=== PATIENT | male | born 1995 | race African-American/Black ===

== ENCOUNTER 2019-01-29 20:06 | Emergency (ER) | payer SELFPAY ==
[2019-01-29 20:07] VITALS: BP 142/83; PULSE 88; RESP 20; TEMP 36.8; O2SAT 93
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
[2019-01-29] MEDS: Acetaminophen 500 MG TAB 1000 MG PO (20:24)
[2019-01-29] MEDS: Normal Saline 1,000 ML 1000 ML IV (20:35)
[2019-01-29 21:13] LABS: Abs Immature Grans 0.06 k/cumm (0.0-0.09); Absolute Basophil Count 0.03 k/cumm (0.0-0.2); Absolute Lymphocyte Count 1.91 k/cumm (1.2-3.4); Absolute Monocyte Count 0.89 k/cumm (0.11-0.7); Absolute Neutrophil Count 11.18 k/cumm (1.2-6.7); Basophils % 0.2; Eosinophils % 0.7; HCT 45.6 % (40.0-50.0); Immature Grans % 0.4; Lymphocytes % 13.5; Mean Corp. HGB Concentration 35.1 g/dL (32.0-36.0); Mean Corpuscular Hemoglobin 30.5 pg (27.0-33.0); Mean Platelet Volume 9.1 fL (8.0-11.0); Monocytes % 6.3; Neutrophils % 78.9; Platelet Count 262 x1000/uL (130-400); RBC 5.24 m/cumm (4.50-6.00); RBC Distribution Width 12.8 % (11.8-14.1); White Blood Cell Count 14.17 k/cumm (4.4-10.8)
[2019-01-29 21:33] LABS: ALT 36 U/L (16-63); AST 27 U/L (15-37); Albumin 3.9 g/dL (3.4-5.0); Alkaline Phosphatase 64 U/L (46-116); BUN 15 mg/dL (7-18); Bilirubin, Total 0.5 mg/dL (0.2-1.0); Calcium 8.9 mg/dL (8.5-10.1); Chloride 104 mmol/L (98-107); Glucose 99 mg/dL (74-106); Magnesium 2.2 mg/dL (1.8-2.4); Potassium 3.9 mmol/L (3.5-5.1); Sodium 141 mmol/L (136-145); TSH 3.99 uIU/mL (0.36-3.74); Total Protein 7.9 g/dL (6.4-8.2)
--- NOTE | 2019-01-29 21:36 | DI.RAD_ITS ---
EXAM: XR SHOULDER LT COMPLETE 2+V INDICATION: fall. COMPARISON: No exams were available for comparison TECHNIQUE: 2D digital imaging was performed. FINDINGS: No fracture or dislocation is seen. IMPRESSION: Negative left shoulder.
--- NOTE | 2019-01-29 22:14 | DI.VRAD_ITS ---
PROCEDURE INFORMATION: Exam: XR Left Shoulder Exam date and time: 01/29/2019 9:52 PM Age: 23 years old Clinical history: Injury or trauma; Initial encounter; Blunt trauma (contusions or hematomas; Injury date: 01/29/19; Injury details: Fall onto left shoulder after seizure, pain TECHNIQUE: Imaging protocol: XR Left shoulder. Views: 2 or more views. COMPARISON: No relevant prior studies available. FINDINGS: Bones/joints: No acute fracture. Joint spaces are maintained. Soft tissues: Normal. IMPRESSION: No acute findings. Dictated and Authenticated by: Weston Ch MD. Ordering:BEBETO Black MD
--- NOTE | 2019-01-29 22:36 | NUR.NOTE ---
Nursing Note: Language line utilized for communication with pt.
[2019-01-29 22:50] LABS: FREE T4 0.82 ng/dL (0.76-1.46)
[2019-01-29] MEDS: levETIRAcetam 500 MG TAB PO (23:06)
[2019-01-29] MEDS: Ibuprofen 600 MG TAB PO (23:07)
[2019-01-29] MEDS: levETIRAcetam 500 MG TAB (23:08)
[2019-01-29 23:09] VITALS: BP 124/80; PULSE 80; RESP 20; TEMP 36.8; O2SAT 96
== END 2019-01-29 23:20 | disposition home or self-care (01) ==
PROVIDERS: Emergency Provider Physician Assistant
DX: R56.9 Unspecified convulsions (principal)
CPT/HCPCS: 80053; 93005; 96360; 99284; 73030; 83735; 84439; 84443; 85025; 93010; L3650

== ENCOUNTER 2019-04-22 08:53 | Emergency (ER) | payer MEDICAID, SELFPAY ==
[2019-04-22] VITALS (14 sets, daily range): BP systolic 127; BP diastolic 76; PULSE 57–88; RESP 11–21; TEMP 36.6; O2SAT 96–100
[2019-04-22] MEDS: Normal Saline 1,000 ML 1000 ML IV (09:27)
[2019-04-22 09:30] LABS: Abs Immature Grans 0.03 k/cumm (0.0-0.09); Absolute Basophil Count 0.03 k/cumm (0.0-0.2); Absolute Eosinophil Count 0.19 k/cumm (0.0-0.7); Absolute Lymphocyte Count 2.47 k/cumm (1.2-3.4); Absolute Monocyte Count 0.68 k/cumm (0.11-0.7); Absolute Neutrophil Count 6.17 k/cumm (1.2-6.7); Basophils % 0.3; HCT 47.5 % (40.0-50.0); HGB 16.7 g/dL (13.5-17.5); Immature Grans % 0.3 %; Lymphocytes % 25.8; Mean Corp. HGB Concentration 35.2 g/dL (32.0-36.0); Mean Corpuscular Hemoglobin 30.9 pg (27.0-33.0); Mean Corpuscular Volume 87.8 fL (80-95); Mean Platelet Volume 9.4 fL (8.0-11.0); Monocytes % 7.1; Neutrophils % 64.5; Platelet Count 265 x1000/uL (130-400); RBC 5.41 m/cumm (4.50-6.00); RBC Distribution Width 12.6 % (11.8-14.1); White Blood Cell Count 9.57 k/cumm (4.4-10.8)
[2019-04-22 09:45] LABS: ALT 35 U/L (16-63); AST 21 U/L (15-37); Albumin 3.9 g/dL (3.4-5.0); Alkaline Phosphatase 66 U/L (46-116); Anion Gap 8.4 mmol/L (3-11); BUN 12 mg/dL (7-18); Bilirubin, Total 0.6 mg/dL (0.2-1.0); CO2 27.6 mmol/L (21.0-32.0); CREATININE 0.91 mg/dL (0.70-1.30); Calcium 9.2 mg/dL (8.5-10.1); Chloride 102 mmol/L (98-107); ETHANOL BLOOD < 3.0 mg/dL (<3); Glucose 122 mg/dL (74-106); Potassium 3.8 mmol/L (3.5-5.1); Sodium 138 mmol/L (136-145); Total Protein 7.4 g/dL (6.4-8.2)
--- NOTE | 2019-04-22 10:12 | ED.GENADUL_ITS ---
Discharge Plan Disposition Patient Disposition: HOME Condition: Stable Discharge Details Chief Complaint: Seizure Clinical Impression: Seizure Primary Care Provider: None,None ED Provider: Solo Lala Home Meds and New Rx's Prescriptions: New levetiracetam [Keppra] 500 mg tablet 500 mg PO BID Qty: 20 RF: 0 Continued levetiracetam [Keppra] 500 mg tablet 500 mg PO BID Qty: 20 RF: 0 Discharge Instructions Instructions: Recurrent Seizures in Adults (ED) Additional Instructions: Keppra as directed. Please follow the instructions given to you by the care management team, go to [facility] tomorrow to help with community resources including filling out your proper paperwork for healthcare, to help you with housing, and also to help you with prescription medications. In the meantime please watch for new or worsening symptoms and return to the ER for any concerns. I will give you the name and number of our local neurologist as well. Contact their office tomorrow for prompt outpatient reevaluation Referrals: Leti Rodriguez MD [ [facility] STAFF PHYSICIAN] - Medical Decision Making 24-year-old gentleman with longstanding seizure disorder since the age of 11. He presents today via EMS after a 2-minute seizure, apparently postictal on scene, neurologically intact now. Had a very similar visit in January of last year. I had a long talk with both patient and significant other. There seems to be multiple social barriers that are not allowing him to seek outpatient medical care. Given his longstanding history, no fall today, I do not believe a head CT is indicated but will obtain routine laboratory values and EKG. In the meantime I will get care management involved in the case to see if they can help with his prescriptions, paperwork for insurance Work-up in the ER unremarkable for obvious emergent process. Patient is awake, alert, neurologically intact, has no additional questions or concerns. It appears as though he is able to eat without difficulty, significant other did order take out while they were here in the ER. Care management came to evaluate the patient, please see their note. Patient and family will go to [facility] tomorrow to help expedite all of their outpatient needs. Patient was given 1 g IV Keppra here and I will set him up with 8 tablets of 500 mg twice daily for the next 4 days, and give a prescription for 20 tablets as well. Patient and family have no additional questions or concerns and are comfortable discharge. Upon discharge patient is neurologically intact. We will arrange a ride home for the patient as well as they do not have any transportation and came in via ambulance. Medical Records Medical records reviewed: Yes I reviewed the patient's medical records. Lab Data Lab results reviewed: Yes I reviewed the patient's lab results. Lab results narrative: Laboratory Tests Range/Units 04/22/19 04/22/19 09:20 09:20 WBC (4.4-10.8) k/cumm 9.57 RBC (4.50-6.00) m/cumm 5.41 Hgb (13.5-17.5) g/dL 16.7 Hct (40.0-50.0) % 47.5 MCV (80-95) fL 87.8 MCH (27.0-33.0) pg 30.9 MCHC (32.0-36.0) g/dL 35.2 RDW (11.8-14.1) % 12.6 Plt Count (130-400) x1000/uL 265 MPV (8.0-11.0) fL 9.4 Immature Gran % % 0.3 Neutrophils % 64.5 Lymphocytes % 25.8 Monocytes % 7.1 Eosinophils % 2.0 Basophils % 0.3 Absolute Neutrophils (1.2-6.7) k/cumm 6.17 Absolute Lymphocytes (1.2-3.4) k/cumm 2.47 Absolute Monocytes (0.11-0.7) k/cumm 0.68 Absolute Eosinophils (0.0-0.7) k/cumm 0.19 Absolute Basophils (0.0-0.2) k/cumm 0.03 Sodium (136-145) mmol/L 138 Potassium (3.5-5.1) mmol/L 3.8 Chloride (98-107) mmol/L 102 Carbon Dioxide (21.0-32.0) mmol/L 27.6 Anion Gap (3-11) mmol/L 8.4 BUN (7-18) mg/dL 12 Creatinine (0.70-1.30) mg/dL 0.91 Estimated GFR/1.73 m2 (mL/min/1.73m2) >= 60.00 Glucose (74-106) mg/dL 122 H Calcium (8.5-10.1) mg/dL 9.2 Total Bilirubin (0.2-1.0) mg/dL 0.6 AST (15-37) U/L 21 ALT (16-63) U/L 35 Alkaline Phosphatase (46-116) U/L 66 Total Protein (6.4-8.2) g/dL 7.4 Albumin (3.4-5.0) g/dL 3.9 Ethyl Alcohol (<3) mg/dL < 3.0 ECG Data Attestation: I personally reviewed and interpreted this ECG (s) as follows: Interpretation: EKG performed at 904 reveals sinus rhythm, ventricular rate of 93. No acute ST elevation or depression segments. HPI General Mode of arrival: EMS . Date/Time Provider Initiated Documentation: 04/22/19 09:00 . Limitations to Documentation: no limitations (upper tier used for evaluation) . Information obtained by: patient and family . HPI Narrative: This is a 24-year- old gentleman who presents to the ER via EMS with his significant other. They report that he did have a few drinks last night but does not typically drink. Denies any recent illness or trauma. This morning around 9:00 had a 2-minute body wide convulsing seizure per her significant other that occurred on their bed, there was no fall or subsequent injury. They deny any other past medical history. Patient reports that he does not have insurance, is unable to fill his prescription for Keppra as directed, and unable to follow-up with a primary care provider or neurology team as an outpatient. Last seizure occurred in January, he was evaluated at that time. It appears as though he had laboratory values drawn, 4-day take-home pack of Keppra given, and set up with care management. They report that they have the packets of paper at home but given the language barrier do not know how to fill them out properly. Patient denies headache, visual changes, chest pain, shortness of breath, nausea, vomiting, numbness, tingling, weakness, incontinence. Does report that his upper back and bilateral shoulders feel tight and that this is very common after having a seizure. He does report having felt his tongue but was not incontinent of urine. Related Data Home Medications Medication Instructions Recorded Confirmed levetiracetam [Keppra] 500 mg PO BID #20 tab 01/29/19 04/22/19 levetiracetam [Keppra] 500 mg PO BID #20 tab 04/22/19 Previous Rx's Medication Instructions Recorded levetiracetam [Keppra] 500 mg PO BID #20 tab 01/29/19 levetiracetam [Keppra] 500 mg PO BID #20 tab 04/22/19 Allergies Allergy/AdvReac Type Severity Reaction Status Date / Time No Known Allergies Allergy Unverified 04/22/19 09:10 General Stated Complaint: Seizure EMILIE: 3 Review of Systems Constitutional Constitutional: Denies chills, Denies fatigue, Denies fever(s), Denies headache(s) and Denies weakness Eyes Eyes: Denies change in vision ENT Ears, Nose, Mouth, and Throat: Denies headache(s) Cardiovascular Cardiovascular: Denies chest pain and Denies dyspnea Respiratory Respiratory: Denies cough and Denies dyspnea Gastrointestinal Gastrointestinal: Denies abdominal pain, Denies nausea and Denies vomiting Genitourinary Genitourinary: Denies dysuria Musculoskeletal Musculoskeletal: Reports back pain (As above in HPI), Denies numbness and Denies tingling Integumentary/Breasts Skin/Breast: Denies rash Neurologic Neurologic: Denies headache(s), Denies numbness, Denies tingling and Denies weakness Endocrine Endocrine: Denies fatigue [facility] Medical History Seizure (Acute) Social History Smoking/Tobacco Use Status: Current every day Tobacco Type: cigarettes Alcohol Intake: never Drug use: Daily Substance use type: marijuana Do you feel safe at home: Yes Do you feel safe in your relationship?: Yes Exam Const General: cooperative, healthy appearing, comfortable and no acute distress Orientation: alert and awake [facility] Head: normal to inspection, no palpable skull fracture, normocephalic and atraumatic Ears: external ears normal, TM's normal bilaterally and TM normal on the left Mouth: moist mucous membranes and tongue abnormal other (Abrasion superior aspect, no laceration) Throat: posterior oropharynx normal Eyes General: appearance normal, both eyes and all related structures Alignment and Position: alignment normal Periorbital: periorbital findings normal Eyelids: eyelids normal Conjunctivae: conjunctivae normal Sclera: sclerae normal Cornea: corneas normal Pupils: PERRL EOM: EOM intact bilaterally Direct ophthalmoscopy: normal light reflex Neck Neck: normal visual inspection, full ROM, no lymphadenopathy, no meningeal si gns, trachea midline and supple Resp Effort & Inspection: normal respiratory effort and able to speak in complete sentences Auscultation: clear to auscultation bilaterally Cardio Rate: regular rate Rhythm: regular rhythm GI Palpation: soft, no guarding, not rigid and nontender Back/Spine/Pelvis Back: No back tenderness Skin General skin exam: no rashes or lesions noted Neuro General: alert, awake, oriented x3, moves all extremities and no focal motor deficits Cranial Nerves: CN's II-XI intact bilaterally Cognition: normal cognition (Of note, Pt is unable to give me information re garding what happened today) Speech: speech normal Gait: normal gait Motor: muscle tone normal throughout and strength 5/5 throughout Sensory Exam: no sensory deficits noted Extrem General: normal to inspection and full ROM Psych Appearance: grossly normal Mental Status: mental status grossly normal Course Vital Signs Vital signs: Vital Signs Temperature 36.6 C 04/22/19 08:54 Pulse 88 04/22/19 08:54 Respiratory Rate 20 04/22/19 08:54 Blood Pressure 127/76 04/22/19 08:54 Pulse Oximetry 98 04/22/19 08:54 Temperature 36.6 C 04/22/19 08:54 Temperature Source Temporal Artery Scan 04/22/19 08:54 Pulse 88 04/22/19 08:54 Respiratory Rate 20 04/22/19 08:54 Respiratory Effort Non-Labored 04/22/19 09:08 Respiratory Depth Normal 04/22/19 09:08 Respiratory Pattern Normal 04/22/19 09:08 Blood Pressure 127/76 04/22/19 08:54 Blood Pressure Position Sitting 04/22/19 08:54 Pulse Oximetry 98 04/22/19 08:54 Oxygen Delivery Method Room Air 04/22/19 08:54 Oxygen Flow Rate 0 04/22/19 08:54 Pain Level 9 04/22/19 08:54 Lab/Test Results Lab/Test Results: Laboratory Tests Range/Units 04/22/19 04/22/19 09:20 09:20 WBC (4.4-10.8) k/cumm 9.57 RBC (4.50-6.00) m/cumm 5.41 Hgb (13.5-17.5) g/dL 16.7 Hct (40.0-50.0) % 47.5 MCV (80-95) fL 87.8 MCH (27.0-33.0) pg 30.9 MCHC (32.0-36.0) g/dL 35.2 RDW (11.8-14.1) % 12.6 Plt Count (130-400) x1000/uL 265 MPV (8.0-11.0) fL 9.4 Immature Gran % % 0.3 Neutrophils % 64.5 Lymphocytes % 25.8 Monocytes % 7.1 Eosinophils % 2.0 Basophils % 0.3 Absolute Neutrophils (1.2-6.7) k/cumm 6.17 Absolute Lymphocytes (1.2-3.4) k/cumm 2.47 Absolute Monocytes (0.11-0.7) k/cumm 0.68 Absolute Eosinophils (0.0-0.7) k/cumm 0.19 Absolute Basophils (0.0-0.2) k/cumm 0.03 Sodium (136-145) mmol/L 138 Potassium (3.5-5.1) mmol/L 3.8 Chloride (98-107) mmol/L 102 Carbon Dioxide (21.0-32.0) mmol/L 27.6 Anion Gap (3-11) mmol/L 8.4 BUN (7-18) mg/dL 12 Creatinine (0.70-1.30) mg/dL 0.91 Estimated GFR/1.73 m2 (mL/min/1.73m2) >= 60.00 Glucose (74-106) mg/dL 122 H Calcium (8.5-10.1) mg/dL 9.2 Total Bilirubin (0.2-1.0) mg/dL 0.6 AST (15-37) U/L 21 ALT (16-63) U/L 35 Alkaline Phosphatase (46-116) U/L 66 Total Protein (6.4-8.2) g/dL 7.4 Albumin (3.4-5.0) g/dL 3.9 Ethyl Alcohol (<3) mg/dL < 3.0
[2019-04-22] MEDS: levETIRAcetam 1,000 MG in Normal Saline 100 ML 400 MG IVPB (10:30)
[2019-04-22] MEDS: levETIRAcetam 250 MG TAB 500 MG PO (12:25)
--- NOTE | 2019-04-23 15:48 | PDOC.ERCMPRO ---
- If Service Date Differs Date of service: 04/23/19 Time of Service: 15:48
== END 2019-04-22 12:14 | disposition home or self-care (01) ==
PROVIDERS: Emergency Provider Physician Assistant
DX: G40.89 Other seizures (principal)
CPT/HCPCS: 80053; 80307; 96361; 96365; 99284; 80320; 81003; 85025; J1953

== ENCOUNTER 2019-06-10 09:35 | Emergency (ER) | payer MEDICAID, SELFPAY ==
[2019-06-10 09:35] VITALS: BP 134/83; PULSE 74; RESP 16; TEMP 36.3; O2SAT 98
--- NOTE | 2019-06-10 09:35 | ED.GENADUL_ITS ---
Discharge Plan Disposition Patient Disposition: HOME Condition: Good Discharge Details Chief Complaint: Seizure Clinical Impression: Seizure disorder, Noncompliance with medication regimen Primary Care Provider: None,None ED Provider: Dona Amato Home Meds and New Rx's Prescriptions: Continued levetiracetam [Keppra] 500 mg tablet 500 mg PO BID Qty: 60 RF: 0 Discontinued levetiracetam [Keppra] 500 mg tablet 500 mg PO BID Qty: 60 RF: 0 Discharge Instructions Instructions: Recurrent Seizures in Adults (ED) Additional Instructions: Take the Keppra as directed. You were also given a prescription for Keflex which you can take to [facility] and they can provide a coupon to help with cost. You do not need insurance to fill this prescription. You need to be taking this medication everyday. You will receive a call from care management tomorrow regarding help with insurance and medications and for a follow up appointment with neurology. Return to the emergency department if you develop any worsening or concerning symptoms. Referrals: Leti Rodriguez MD [ [facility] STAFF PHYSICIAN] - Discharge Data Discharge Date/Time-TO BE ENTERED AT DEPARTURE: 06/10/19 11:30 Discharge Physician: Dona Amato Medical Decision Making 0930 -- 24-year-old male with a history of seizures presents for seizure at home this morning. He was seen here last month for same complaint and given Keppra load and doses for home and prescription which she states he did not fill due to lack of insurance. Patient arrives to the ED awake and alert and hemodynamically stable. No evidence of trauma on exam. He has pain to left arm with range of motion which is likely due to muscle contraction with seizures as there is no evidence of trauma or complaint of arm pain prior to seizure. We will check screening labs, give Keppra load and Toradol. Patient has no noted neurologic deficit or report of head trauma and appears consistent likely with seizure occurring due to medication noncompliance so do not see an indication for imaging at this time. Case discussed with care management who will call patient at home tomorrow to assist with his insurance and medication and assist with appointment for follow- up with neurology. 1100 -- Labs reviewed and unremarkable. Patient reassessed and he has no acute complaints. Left arm improved. Patient was given 7 days of Keppra to go as well as prescription. He was provided with coupons and information for obtaining a month prescription at [facility] for $9 and at [facility] for $16. He was advised on the importance of taking this medicine every day to prevent seizures and repeated neurologic insult. Advised to return here with any concerns. Medical Records Medical records reviewed: Yes I reviewed the patient's medical records. Lab Data Lab results reviewed: Yes I reviewed the patient's lab results. Labs: Laboratory Tests Range/Units 06/10/19 06/10/19 09:45 09:45 WBC (4.4-10.8) k/cumm 9.94 RBC (4.50-6.00) m/cumm 5.30 Hgb (13.5-17.5) g/dL 16.5 Hct (40.0-50.0) % 46.7 MCV (80-95) fL 88.1 MCH (27.0-33.0) pg 31.1 MCHC (32.0-36.0) g/dL 35.3 RDW (11.8-14.1) % 12.9 Plt Count (130-400) x1000/uL 254 MPV (8.0-11.0) fL 9.7 Immature Gran % % 0.3 Neutrophils % 59.6 Lymphocytes % 31.1 Monocytes % 6.8 Eosinophils % 2.0 Basophils % 0.2 Absolute Neutrophils (1.2-6.7) k/cumm 5.92 Absolute Lymphocytes (1.2-3.4) k/cumm 3.09 Absolute Monocytes (0.11-0.7) k/cumm 0.68 Absolute Eosinophils (0.0-0.7) k/cumm 0.20 Absolute Basophils (0.0-0.2) k/cumm 0.02 Sodium (136-145) mmol/L 142 Potassium (3.5-5.1) mmol/L 3.9 Chloride (98-107) mmol/L 104 Carbon Dioxide (21.0-32.0) mmol/L 23.9 Anion Gap (3-11) mmol/L 14.1 H BUN (7-18) mg/dL 12 Creatinine (0.70-1.30) mg/dL 1.05 Estimated GFR/1.73 m2 (mL/min/1.73m2) >= 60.00 Glucose (74-106) mg/dL 139 H Calcium (8.5-10.1) mg/dL 8.8 Total Bilirubin (0.2-1.0) mg/dL 0.3 AST (15-37) U/L 22 ALT (16-63) U/L 32 Alkaline Phosphatase (46-116) U/L 65 Total Protein (6.4-8.2) g/dL 7.4 Albumin (3.4-5.0) g/dL 3.9 HPI General Mode of arrival: EMS . Date/Time Provider Initiated Documentation: 06/10/19 09:51 . Limitations to Documentation: no limitations . Information obtained by: patient . HPI Narrative: Patient is a 24-year-old male with a history of seizures since age 11 who presents for evaluation after seizure at home this morning. Patient did not recall the episode. Patient is Kyrgyz-speaking only but history provided by girlfriend as well as language line. Girlfriend states she was in the residence at the time when she heard yelling and ran to the bedroom and states patient was laying in the bed and what appeared to be a tonic-clonic seizure with arms jerking and weeding [id number]. She states this lasted approximately 3 minutes. She states patient appears somewhat tired and dazed afterwards but now appears back to baseline. Patient complains of left arm and left upper back pain since then. Denies any injury. Denies any recent illness including fever, vomiting, diarrhea, cough, shortness of breath. Of note, patient was seen here 1 month ago for the same complaint and was given Keppra load as well as tabs to go and prescription. Patient states he does not have insurance and did not fill the prescription. Related Data Home Medications Medication Instructions Recorded Confirmed levetiracetam [Keppra] 500 mg PO BID #60 tab 06/10/19 Previous Rx's Medication Instructions Recorded levetiracetam [Keppra] 500 mg PO BID #60 tab 06/10/19 Allergies Allergy/AdvReac Type Severity Reaction Status Date / Time No Known Allergies Allergy Unverified 06/10/19 09:40 General EMILIE: 3 Review of Systems All systems reviewed & are unremarkable except as noted in HPI and below Constitutional Constitutional: Reports as per HPI, Denies chills and Denies fever(s) Eyes Eyes: Denies blurry vision ENT Ears, Nose, Mouth, and Throat: Denies dizziness, Denies sore throat and Denies throat swelling Cardiovascular Cardiovascular: Denies chest pain and Denies dyspnea Respiratory Respiratory: Denies cough and Denies dyspnea Gastrointestinal Gastrointestinal: Denies abdominal pain, Denies diarrhea and Denies vomiting Genitourinary Genitourinary: Denies hematuria and Denies dysuria Musculoskeletal Musculoskeletal: Denies back pain and Denies numbness Integumentary/Breasts Skin/Breast: Denies lesions and Denies rash Neurologic Neurologic: Denies dizziness, Denies localized weakness, Denies numbness and Reports seizure-like activity Allergic/Immunologic Allergic/Immunologic: Denies throat swelling [facility] Medical History (Updated 06/10/19 @ 11:14 by Dona Amato DO) Seizure (Acute) Surgical History (Updated 06/10/19 @ 09:55 by Dona Amato DO) No significant past surgical history (Acute) Social History Smoking/Tobacco Use Status: Current every day Tobacco Type: cigarettes Alcohol Intake: never Drug use: Daily Substance use type: marijuana Do you feel safe at home: Yes Do you feel safe in your relationship?: Yes Exam Const General: cooperative, healthy appearing and no acute distress Nutritional Appearance: obese morbidly obese Orientation: alert, awake and oriented x3 HENMT Head: normal to inspection Ears: hearing grossly normal bilaterally, external ears normal and TM's normal bilaterally General nose exam: external nose normal Face and sinus: normal facial exam Mouth: oral mucosae normal Teeth and gingiva: dentition normal Throat: posterior oropharynx normal Eyes General: appearance normal, both eyes and all related structures Eyelids: eyelids normal Pupils: PERRL EOM: EOM intact bilaterally Neck Neck: normal visual inspection Lymphatic: no lymphadenopathy noted Chest Chest: normal inspection of the chest Resp Effort & Inspection: normal respiratory effort and able to speak in complete sentences Auscultation: clear to auscultation bilaterally Cardio Rate: regular rate Rhythm: regular rhythm GI Inspection: normal to inspection Palpation: soft, not firm, no guarding, no hepatosplenomegaly, no masses and nontender Auscultation: normal bowel sounds Back/Spine/Pelvis Back: no CVA tenderness Skin General skin exam: no rashes or lesions noted Neuro General: patient alert, patient awake and patient oriented x3 Cranial Nerves: CN's II-XI intact bilaterally Cognition: normal cognition Speech: speech normal Gait: normal gait Motor: muscle tone normal throughout and strength 5/5 throughout Sensory Exam: no sensory deficits noted Extrem General: normal to inspection, full ROM, capillary refill normal, no cyanosis and no edema Right upper extremity: shoulder/upper arm Details: abnormal ROM Details: pain with active ROM Details: in ADduction and in ABduction Other: b/l distal pulses intact. Psych Appearance: grossly normal Mental Status: mental status grossly normal Speech and Movement: speech and movement normal Affect: normal affect Thought Process: normal
[2019-06-10] MEDS: Normal Saline 1,000 ML 1000 ML IV (09:58)
[2019-06-10 10:00] LABS: Abs Immature Grans 0.03 k/cumm (0.0-0.09); Absolute Basophil Count 0.02 k/cumm (0.0-0.2); Absolute Lymphocyte Count 3.09 k/cumm (1.2-3.4); Absolute Monocyte Count 0.68 k/cumm (0.11-0.7); Absolute Neutrophil Count 5.92 k/cumm (1.2-6.7); Basophils % 0.2; HCT 46.7 % (40.0-50.0); HGB 16.5 g/dL (13.5-17.5); Immature Grans % 0.3 %; Lymphocytes % 31.1; Mean Corp. HGB Concentration 35.3 g/dL (32.0-36.0); Mean Corpuscular Hemoglobin 31.1 pg (27.0-33.0); Mean Corpuscular Volume 88.1 fL (80-95); Mean Platelet Volume 9.7 fL (8.0-11.0); Monocytes % 6.8; Neutrophils % 59.6; Platelet Count 254 x1000/uL (130-400); RBC Distribution Width 12.9 % (11.8-14.1); White Blood Cell Count 9.94 k/cumm (4.4-10.8)
[2019-06-10] MEDS: levETIRAcetam 1,000 MG in Normal Saline 100 ML 400 MG IVPB (10:04)
[2019-06-10] MEDS: Ketorolac 30 MG/ML VIAL IVP (10:05)
[2019-06-10 10:22] LABS: ALT 32 U/L (16-63); AST 22 U/L (15-37); Albumin 3.9 g/dL (3.4-5.0); Alkaline Phosphatase 65 U/L (46-116); Anion Gap 14.1 mmol/L (3-11); BUN 12 mg/dL (7-18); Bilirubin, Total 0.3 mg/dL (0.2-1.0); CO2 23.9 mmol/L (21.0-32.0); CREATININE 1.05 mg/dL (0.70-1.30); Calcium 8.8 mg/dL (8.5-10.1); Chloride 104 mmol/L (98-107); Glucose 139 mg/dL (74-106); Potassium 3.9 mmol/L (3.5-5.1); Sodium 142 mmol/L (136-145); Total Protein 7.4 g/dL (6.4-8.2)
--- NOTE | 2019-06-10 11:15 | NUR.NOTE ---
follow up with care managment for PCP. and help with insurance. Also follow up with nurology for seisucres. 06/10/2019 Nursing Note:
--- NOTE | 2019-06-13 18:34 | CMACTNOTE_ITS ---
- If Service Date Differs Date of service: 06/13/19 Time of Service: 18:34 Care Management Activity Note KENNETH speaks with patient's friend, Trevor Hernandez, on the telephone. She advises Sixto is doing well and has not yet picked up his prescriptions, but has a plan to go to the pharmacy to get the scripts filled in the next day or two. KENNETH provides her with the phone number for [facility], as she is agreeable to assisting Sixto in contacting them to begin the process of apply ing for health insurance.
== END 2019-06-10 11:30 | disposition home or self-care (01) ==
PROVIDERS: Emergency Provider Physician Assistant
DX: G40.909 Epilepsy, unspecified, not intractable, without status epilepticus (principal); Z91.14 Patient's other noncompliance with medication regimen
CPT/HCPCS: 80053; 96361; 96365; 96375; 99284; 85025; J1885; J1953

== ENCOUNTER 2019-09-02 11:04 | Emergency (ER) | payer MEDICAID, SELFPAY ==
[2019-09-02] VITALS (32 sets, daily range): BP systolic 121–146; BP diastolic 70–103; PULSE 52–96; RESP 13–27; TEMP 36.7; O2SAT 95–99
--- NOTE | 2019-09-02 11:09 | ED.GENADUL_ITS ---
Discharge Plan Disposition Patient Disposition: HOME Condition: Stable Discharge Details Chief Complaint: Seizure Clinical Impression: Seizure, Noncompliance with medication regimen Primary Care Provider: None,None ED Provider: Dona Amato Home Meds and New Rx's Prescriptions: New levetiracetam [Keppra] 500 mg tablet 500 mg PO BID Qty: 120 RF: 0 Continued levetiracetam [Keppra] 500 mg tablet 500 mg PO BID Qty: 60 RF: 0 Discharge Instructions Instructions: Recurrent Seizures in Adults (ED) Additional Instructions: Take the Keppra as directed. It is important not to miss any doses of this medication as this prevents seizures. Repeated seizures can cause damage to your brain. Establish care with a new primary care doctor in [place] when you move there in the next 2 weeks. Return to the emergency department with any worsening or new concerning symptoms. Discharge Data Discharge Date/Time-TO BE ENTERED AT DEPARTURE: 09/02/19 14:38 Discharge Physician: Dona Amato Medical Decision Making 1110 -- 24-year-old male with a known seizure disorder presents for seizure at home today. He has a history of noncompliance with his medications. Last dose of Keppra this morning, but last dose before that weeks ago. Offered language line but patient declined stating he would prefer to translate through his girlfriend who was present and filipino speaking. Patient has been here multiple times in the recent past with seizure in setting of medication noncompliance and he has been given resources and referred for follow-up through care management. BP mildly hypertensive. He is complaining of pain in his back and upper arms which is usual presentation of seizure. He is awake and oriented x3. He has no focal deficits and able to answer all questions. No evidence of trauma, rash or cellulitis. 1330 -- Screening labs obtained and unremarkable. Patient was given 1 g of Keppra p.o. here. He is awake and alert, no focal deficits and is requesting to go home. Patient is moving to [place] in the next 2 weeks. A prescription for Keppra for 2 months given. It was discussed at length the importance of patient taking his seizure medications to prevent repeated neurologic insult. He is advised to follow-up with a primary care doctor and neurologist in [place] for reevaluation. Usual and customary return precautions given prior to discharge. Medical Records Medical records reviewed: Yes I reviewed the patient's medical records. Lab Data Lab results reviewed: Yes I reviewed the patient's lab results. Labs: Laboratory Tests Range/Units 09/02/19 09/02/19 11:18 11:18 WBC (4.4-10.8) k/cumm 10.18 RBC (4.50-6.00) m/cumm 5.35 Hgb (13.5-17.5) g/dL 16.3 Hct (40.0-50.0) % 47.0 MCV (80-95) fL 87.9 MCH (27.0-33.0) pg 30.5 MCHC (32.0-36.0) g/dL 34.7 RDW (11.8-14.1) % 12.9 Plt Count (130-400) x1000/uL 261 MPV (8.0-11.0) fL 9.3 Immature Gran % % 0.3 Neutrophils % 62.9 Lymphocytes % 28.9 Monocytes % 5.8 Eosinophils % 1.9 Basophils % 0.2 Absolute Neutrophils (1.2-6.7) k/cumm 6.41 Absolute Lymphocytes (1.2-3.4) k/cumm 2.94 Absolute Monocytes (0.11-0.7) k/cumm 0.59 Absolute Eosinophils (0.0-0.7) k/cumm 0.19 Absolute Basophils (0.0-0.2) k/cumm 0.02 Sodium (136-145) mmol/L 141 Potassium (3.5-5.1) mmol/L 3.5 Chloride (98-107) mmol/L 103 Carbon Dioxide (21.0-32.0) mmol/L 21.3 Anion Gap (3-11) mmol/L 16.7 H BUN (7-18) mg/dL 11 Creatinine (0.70-1.30) mg/dL 1.17 Estimated GFR/1.73 m2 (mL/min/1.73m2) >= 60.00 Glucose (74-106) mg/dL 151 H Calcium (8.5-10.1) mg/dL 9.0 Total Bilirubin (0.2-1.0) mg/dL 0.6 AST (15-37) U/L 31 ALT (16-63) U/L 40 Alkaline Phosphatase (46-116) U/L 63 Total Protein (6.4-8.2) g/dL 7.6 Albumin (3.4-5.0) g/dL 4.1 HPI General Mode of arrival: ambulatory . Date/Time Provider Initiated Documentation: 09/02/19 11:24 . Limitations to Documentation: no limitations . Information obtained by: patient . HPI Narrative: Patient is a 24-year-old male with a known seizure disorder who presents to the emergency department status post seizure. Girlfriend states that patient was laying in bed when he told her he started feeling funny and was concerned he was about to have a seizure. She states she kept him in the bed and he had a seizure which lasted approximately 3 minutes. She states he had full body jerking consistent with his usual seizures. She states his last seizure was 2 months ago when he was seen here. Patient has been seen in the ER multiple times for seizures and has been noncompliant with his medications. Patient states he mainly does not take his Keppra because he forgets . Patient is [place]-speaking only and discussed that we can obtain the language line but he states he would prefer to provide history through his girlfriend who is [place] and [place]-speaking. Related Data Home Medications Medication Instructions Recorded Confirmed levetiracetam [Keppra] 500 mg PO BID #120 tab 09/02/19 levetiracetam [Keppra] 500 mg PO BID #60 tab 09/02/19 Previous Rx's Medication Instructions Recorded levetiracetam [Keppra] 500 mg PO BID #120 tab 09/02/19 levetiracetam [Keppra] 500 mg PO BID #60 tab 09/02/19 Allergies Allergy/AdvReac Type Severity Reaction Status Date / Time No Known Allergies Allergy Unverified 09/02/19 11:33 General Stated Complaint: Seizure EMILIE: 3 Review of Systems All systems reviewed & are unremarkable except as noted in HPI and below Constitutional Constitutional: Reports as per HPI, Denies chills and Denies fever(s) Eyes Eyes: Denies blurry vision ENT Ears, Nose, Mouth, and Throat: Denies dizziness, Denies sore throat and Denies throat swelling Cardiovascular Cardiovascular: Denies chest pain and Denies dyspnea Respiratory Respiratory: Denies cough and Denies dyspnea Gastrointestinal Gastrointestinal: Denies abdominal pain, Denies diarrhea and Denies vomiting Genitourinary Genitourinary: Denies hematuria and Denies dysuria Musculoskeletal Musculoskeletal: Denies back pain and Denies numbness Integumentary/Breasts Skin/Breast: Denies lesions and Denies rash Neurologic Neurologic: Denies dizziness, Denies localized weakness, Denies numbness and Reports seizure-like activity Allergic/Immunologic Allergic/Immunologic: Denies throat swelling [facility] Medical History (Updated 09/02/19 @ 13:51 by Dona Amato DO) Seizure (Acute) Surgical History (Updated 06/10/19 @ 09:55 by Dona Amato DO) No significant past surgical history (Acute) Social History Smoking/Tobacco Use Status: Current every day Tobacco Type: cigarettes Alcohol Intake: current Alcohol Intake frequency: a few times a week Drug use: Daily Substance use type: marijuana Do you feel safe at home: Yes Do you feel safe in your relationship?: Yes Exam Const General: cooperative and other (tearful, c/o pain in back and both shoulders, typical of usual seizure) Nutritional Appearance: obese morbidly obese Orientation: alert, awake and oriented x3 HENMT Head: normal to inspection Face and sinus: normal facial exam Eyes General: appearance normal, both eyes and all related structures Pupils: PERRL EOM: EOM intact bilaterally Neck Neck: normal visual inspection and No submandibular swelling Lymphatic: no lymphadenopathy noted Chest Chest: normal inspection of the chest and no tenderness Resp Effort & Inspection: normal respiratory effort and able to speak in complete sentences Auscultation: clear to auscultation bilaterally Cardio Rate: regular rate Rhythm: regular rhythm GI Inspection: normal to inspection Palpation: soft, not firm, not rigid and nontender Auscultation: normal bowel sounds Back/Spine/Pelvis Cervical Spine: No cervical muscular tenderness and No cervical spinal tenderness Thoracic/Lumbar Spine: thoracic and lumbar spine normal to inspection, paraspinal tenderness (Bilateral upper thoracic) and No thoracic spinal tenderness Pelvis: no pain with anterior-posterior compression Skin General skin exam: no rashes or lesions noted Neuro General: patient alert, patient awake and patient oriented x3 Cranial Nerves: CN's II-XI intact bilaterally Cognition: normal cognition Speech: speech normal Motor: muscle tone normal throughout and strength 5/5 throughout Sensory Exam: no sensory deficits noted Extrem General: normal to inspection, full ROM, capillary refill normal, no calf tenderness bilaterally and no edema Psych Appearance: grossly normal Mental Status: mental status grossly normal Speech and Movement: speech and movement normal Affect: normal affect Course Vital Signs Vital signs: Vital Signs Temperature 98.1 F 09/02/19 11:05 Pulse 96 H 09/02/19 11:05 Respiratory Rate 20 09/02/19 11:05 Blood Pressure 146/103 H 09/02/19 11:05 Pulse Oximetry 95 09/02/19 11:05 Temperature 98.1 F 09/02/19 11:05 Temperature Source Skin 09/02/19 11:05 Pulse 96 H 09/02/19 11:05 Respiratory Rate 20 09/02/19 11:05 Blood Pressure 146/103 H 09/02/19 11:05 Blood Pressure Position Sitting 09/02/19 11:05 Pulse Oximetry 95 09/02/19 11:05 Oxygen Delivery Method Room Air 09/02/19 11:05 Oxygen Flow Rate 0 09/02/19 11:05
[2019-09-02] MEDS: Normal Saline 1,000 ML 1000 ML IV (11:15)
[2019-09-02 11:26] LABS: Abs Immature Grans 0.03 k/cumm (0.0-0.09); Absolute Basophil Count 0.02 k/cumm (0.0-0.2); Absolute Eosinophil Count 0.19 k/cumm (0.0-0.7); Absolute Lymphocyte Count 2.94 k/cumm (1.2-3.4); Absolute Monocyte Count 0.59 k/cumm (0.11-0.7); Absolute Neutrophil Count 6.41 k/cumm (1.2-6.7); Basophils % 0.2; Eosinophils % 1.9; HGB 16.3 g/dL (13.5-17.5); Immature Grans % 0.3 %; Lymphocytes % 28.9; Mean Corp. HGB Concentration 34.7 g/dL (32.0-36.0); Mean Corpuscular Hemoglobin 30.5 pg (27.0-33.0); Mean Corpuscular Volume 87.9 fL (80-95); Mean Platelet Volume 9.3 fL (8.0-11.0); Monocytes % 5.8; Neutrophils % 62.9; Platelet Count 261 x1000/uL (130-400); RBC 5.35 m/cumm (4.50-6.00); RBC Distribution Width 12.9 % (11.8-14.1); White Blood Cell Count 10.18 k/cumm (4.4-10.8)
[2019-09-02] MEDS: Ketorolac 30 MG/ML VIAL IVP (11:29)
[2019-09-02] MEDS: ACETAMINOPHEN 1,000 MG/100 ML BTL 400 MG IVPB (11:30)
[2019-09-02 11:43] LABS: ALT 40 U/L (16-63); AST 31 U/L (15-37); Albumin 4.1 g/dL (3.4-5.0); Alkaline Phosphatase 63 U/L (46-116); Anion Gap 16.7 mmol/L (3-11); BUN 11 mg/dL (7-18); Bilirubin, Total 0.6 mg/dL (0.2-1.0); CO2 21.3 mmol/L (21.0-32.0); CREATININE 1.17 mg/dL (0.70-1.30); Chloride 103 mmol/L (98-107); Glucose 151 mg/dL (74-106); Potassium 3.5 mmol/L (3.5-5.1); Sodium 141 mmol/L (136-145); Total Protein 7.6 g/dL (6.4-8.2)
[2019-09-02] MEDS: levETIRAcetam 500 MG TAB 1000 MG PO (12:40)
--- NOTE | 2019-09-02 14:34 | NUR.NOTE ---
Nursing Note: Called [facility] and pt is not eligible through Medicaid for transport. Permission from Zeynep Burrell, Care Management for [facility] to pay for ride back to residence. Diane Gil.
== END 2019-09-02 14:38 | disposition home or self-care (01) ==
PROVIDERS: Emergency Provider Physician Assistant
DX: G40.909 Epilepsy, unspecified, not intractable, without status epilepticus (principal); T42.76XA Underdosing of unspecified antiepileptic and sedative-hypnotic drugs, initial encounter; Z91.14 Patient's other noncompliance with medication regimen
CPT/HCPCS: 36415; 80053; 96361; 96374; 96375; 99284; 85025; J0131; J1885

== ENCOUNTER 2019-10-18 03:39 | Emergency (ER) | payer MEDICAID, SELFPAY ==
[2019-10-18 03:43] VITALS: BP 145/87; PULSE 102; RESP 20; TEMP 36.5; O2SAT 99
--- NOTE | 2019-10-18 03:49 | W.ED.GENAD ---
Discharge Plan Disposition Patient Disposition: HOME Condition: Stable Discharge Details Chief Complaint: Seizure Clinical Impression: Seizure Primary Care Provider: None,None ED Provider: Chino Mendes Home Meds and New Rx's Prescriptions: Continued levetiracetam [Keppra] 500 mg tablet 500 mg PO BID Qty: 120 RF: 0 Discharge Instructions Instructions: Recurrent Seizures in Adults (ED) Additional Instructions: it is important you take your medication as prescribed as you could have more seizures without it if you have fevers, severe worsening pain or feel more ill return to the emergency department I place ami on our follow up list to see your primary care provider within 1-2 weeks Medical Decision Making 24 yo male who speaks slovenian and was offered healthcare interpreter but declined as he prefers using his girlfriend, who hasn't taken his keppra in weeks and is noncompliant chronically with his seizure medicine, comes in with ems after having a tonic clonic seizure for 3 minutes per girlfriend while they were sleeping. He does use marijuana otherwise no alcohol or drug use. He arrives HD stable, bgfs with ems 110. He has no focal motor or sensation deficits, moving all extremities, complaining of pain in his arms which is typical when he grubbs seizures per pt and girlfriend. PERRL. Suspect he had a seizure from medication noncompliance. No infectious symptoms. Given known seizure disorder will defer ct imaging of head at this time, give a gram of keppra and evaluate for electrolyte abnormalities and monitor pt stable and has no complaints requesting d/c. labs show mild leukocytosis likely stress response from seizure otherwise unremarkable. discussed at length importance of taking his seizure med and refraining from marijuana. Will place on CM as they are unsure if he is still on medicaid and not sure of his pc who he should f/u with within 1-2 weeks. He and girlfriend confirm he still has keppra and don't need new script here. Return precautions given Differential Diagnosis Differential Diagnosis: epilepsy, medication noncompliance, electrolyte abnormality HPI General Mode of arrival: EMS. Date/Time Provider Initiated Documentation: 10/18/19 03:48. Limitations to Documentation: language barrier. Information obtained by: patient, family and EMS. History of Present Illness 24 year old M presents to the emergency department with the chief complaint of seizure, described as moderate, and it has been constant. No relieving factors improve symptom(s), No exacerbating factors reported . Related Data Home Medications Medication Instructions Recorded Confirmed levetiracetam [Keppra] 500 mg PO BID #120 tab 09/02/19 10/18/19 Previous Rx's Medication Instructions Recorded levetiracetam [Keppra] 500 mg PO BID #120 tab 09/02/19 Allergies Allergy/AdvReac Type Severity Reaction Status Date / Time No Known Allergies Allergy Unverified 10/18/19 04:07 General Stated Complaint: Seizure EMILIE: 3 Review of Systems All systems reviewed & are unremarkable except as noted in HPI and below Constitutional Constitutional: Denies chills, Denies fever(s) and Denies weakness Cardiovascular Cardiovascular: Denies chest pain and Denies dyspnea Respiratory Respiratory: Denies cough and Denies dyspnea Gastrointestinal Gastrointestinal: Denies abdominal pain, Denies nausea and Denies vomiting Musculoskeletal Musculoskeletal: Denies joint swelling Neurologic Neurologic: Denies weakness Psychiatric Psychiatric: Denies depression [facility] Medical History (Updated 10/18/19 @ 04:21 by Chino Mendes MD) Seizure (Acute) Surgical History (Updated 06/10/19 @ 09:55 by Dona Amato DO) No significant past surgical history (Acute) Social History Smoking/Tobacco Use Status: Current every day Tobacco Type: cigarettes Alcohol Intake: current Alcohol Intake frequency: a few times a week Drug use: Daily Substance use type: marijuana Do you feel safe at home: Yes Do you feel safe in your relationship?: Yes Exam Const General: no acute distress Orientation: alert [facility] Head: normal to inspection Ears: external ears normal General nose exam: external nose normal Mouth: moist mucous membranes Eyes General: appearance normal, both eyes and all related structures Neck Neck: normal visual inspection Resp Effort & Inspection: normal respiratory effort Cardio Rate: regular rate Skin General skin exam: no rashes or lesions noted Neuro General: patient alert and patient oriented x3 Extrem General: normal to inspection Psych Mental Status: mental status grossly normal Course Vital Signs Vital signs: Vital Signs Temperature 36.5 C 10/18/19 03:43 Pulse 102 H 10/18/19 03:43 Respiratory Rate 10/18/19 03:43 Blood Pressure 145/87 H 10/18/19 03:43 Pulse Oximetry 99 10/18/19 03:43 Temperature 36.5 C 10/18/19 03:43 Temperature Source Tympanic 10/18/19 03:43 Pulse 102 H 10/18/19 03:43 Respiratory Rate 20 10/18/19 03:43 Blood Pressure 145/87 H 10/18/19 03:43 Pulse Oximetry 99 10/18/19 03:43 Oxygen Delivery Method Room Air 10/18/19 03:43 Oxygen Flow Rate 0 10/18/19 03:43 Pain Level 7 10/18/19 03:43
[2019-10-18 03:57] LABS: Abs Immature Grans 0.09 10^3/uL (0.0-0.06); Absolute Basophil Count 0.04 10^3/uL (0.0-0.2); Absolute Eosinophil Count 0.17 10^3/uL (0.0-0.7); Basophils % 0.3; Eosinophils % 1.2; HCT 46.5 % (40.0-50.0); HGB 15.8 g/dL (13.5-17.5); Immature Grans % 0.7; Lymphocytes % 28.8; MCH 30.6 pg (27.0-33.0); MCV 89.9 fL (80-95); MPV 9.4 fL (8.0-11.0); Monocytes % 5.9; Neutrophils % 63.1; Nucleated RBC 0 %; Platelet Count 266 10^3/uL (130-400); RBC 5.17 10^6/uL (4.36-5.78); RDW 12.5 % (11.8-14.1); RDW-SD 41.2 fL; WBC 13.84 10^3/uL (4.4-10.8)
[2019-10-18] MEDS: Ketorolac 30 MG/ML VIAL IVP (03:58)
[2019-10-18] MEDS: levETIRAcetam 1,000 MG in Normal Saline 100 ML 400 MG IVPB (03:59)
[2019-10-18 04:01] LABS: Absolute Lymphocyte Count 3.99 10^3/uL (1.2-3.4); Absolute Monocyte Count 0.82 10^3/uL (0.1-0.8); Absolute Neutrophil Count 8.73 10^3/uL (1.2-6.7)
[2019-10-18] MEDS: Normal Saline 1,000 ML 1000 ML IV (04:07)
[2019-10-18 04:11] VITALS: BP 135/83; PULSE 80; PULSE 85; RESP 17; O2SAT 97
[2019-10-18 04:12] VITALS: PULSE 82; RESP 16; O2SAT 98
[2019-10-18 04:12] LABS: ALT 43 U/L (16-63); AST 34 U/L (15-37); Albumin 3.8 g/dL (3.4-5.0); Alkaline Phosphatase 62 U/L (46-116); Anion Gap 14.6 mmol/L (3-11); BUN 9 mg/dL (7-18); Bilirubin, Total 0.6 mg/dL (0.2-1.0); CO2 23.4 mmol/L (21.0-32.0); CREATININE 0.97 mg/dL (0.70-1.30); Calcium 8.7 mg/dL (8.5-10.1); Chloride 102 mmol/L (98-107); ETHANOL BLOOD < 3.0 mg/dL (<3); Glucose 123 mg/dL (74-106); Magnesium 1.9 mg/dL (1.8-2.4); Potassium 3.7 mmol/L (3.5-5.1); Sodium 140 mmol/L (136-145); Total Protein 7.3 g/dL (6.4-8.2)
--- NOTE | 2019-10-18 04:27 | NUR.NOTE ---
Nursing Note: referal copied to cm for pcp and medicaid
[2019-10-18 04:33] VITALS: BP 135/82; PULSE 85; RESP 18; O2SAT 99
--- NOTE | 2019-10-19 11:07 | CMPROGNOTE_ITS ---
- If Service Date Differs Date of service: 10/19/19 Time of Service: 11:07 Care Management Progress Note coordinates a referral to [facility] to assist Sixto in obtaining a follow-up appointment to ED visit and in establishing care with a PCP. Sixto only speaks upper sorbian and has [place] Medicaid for insurance.
== END 2019-10-18 04:25 | disposition home or self-care (01) ==
LOC: ER 04:24
PROVIDERS: Emergency Provider Emergency Medicine
DX: G40.909 Epilepsy, unspecified, not intractable, without status epilepticus (principal); T42.76XA Underdosing of unspecified antiepileptic and sedative-hypnotic drugs, initial encounter; Z91.128 Patient's intentional underdosing of medication regimen for other reason
CPT/HCPCS: 36415; 80053; 80307; 96365; 96375; 99284; 80320; 83735; 85025; J1885; J1953

== ENCOUNTER 2019-10-30 11:20 | Emergency (ER) | payer MEDICAID, SELFPAY ==
--- NOTE | 2019-10-30 11:15 | RT.EKG_ITS ---
APPROVED REPORT Exam: Resting ECG Patient Location: E HR:86 bpm ECG Measurements Heart Rate 86 AXIS GA 166 P 60 QRSd 99 QRS 34 QT 363 T 24 QTc 435 Conclusion Sinus rhythm...normal P axis, V-rate 60- 99 ST elev, probable normal early repol pattern...ST elevation, age<55
[2019-10-30 11:25] VITALS: BP 180/92; PULSE 88; RESP 18; TEMP 36.5; O2SAT 97
--- NOTE | 2019-10-30 11:34 | ED.GENADUL_ITS ---
Discharge Plan Disposition Patient Disposition: HOME Condition: Stable Discharge Details Chief Complaint: Seizure Clinical Impression: Seizure Primary Care Provider: None,None ED Provider: Chino Mendes Home Meds and New Rx's Prescriptions: Continued levetiracetam [Keppra] 500 mg tablet 500 mg PO BID Qty: 120 RF: 0 Discharge Instructions Instructions: Recurrent Seizures in Adults (ED) Additional Instructions: please take your medicine as prescribed if you develop multiple seizures, seizures lasting over five minutes, fevers or feel more ill return to the emergency department Medical Decision Making 24 yo male with known seizure disorder comes in with chief complaint of seizure that girlfriend descrbibes as tonic clonic lasting about 2 minutes and is similar to his prior seizures. He is unsure when he last took his keppra and doesn't take it reliably. Denies any drug use, arrives hd stable and no focal neuro deficits. Suspect recurrent seizure as a result of noncompliance with medicaiton, will evaluate for electrolyte abnormalities and monitor. Always has left arm pain after a seizure per pt and is improving now, no signs of trauma and full rom with normal sensation and pulses pt remains stable and asymptoamtic at this time, will d/c and again place on f/u list to see pcp Differential Diagnosis Differential Diagnosis: seizure, electrolyte abnormality Lab Data Lab results reviewed: Yes I reviewed the patient's lab results. ECG Data Attestation: I personally reviewed and interpreted this ECG (s) as follows: Prior ECG tracings: available for review Interpretation: sinus rhythm, rate of 86, pr 166, no acute st t wave ischemic findings HPI General Mode of arrival: ambulatory . Date/Time Provider Initiated Documentation: 10/30/19 11:30 . Limitations to Documentation: no limitations . Information obtained by: patient . History of Present Illness 24 year old M presents to the emergency department with the chief complaint of seizure, described as moderate, Patient started experiencing this hour(s) (1) and it has been now resolved. No relieving factors improve symptom(s), No exacerbating factors reported . Related Data Home Medications Medication Instructions Recorded Confirmed levetiracetam [Keppra] 500 mg PO BID #120 tab 09/02/19 10/18/19 Previous Rx's Medication Instructions Recorded levetiracetam [Keppra] 500 mg PO BID #120 tab 09/02/19 Allergies Allergy/AdvReac Type Severity Reaction Status Date / Time No Known Allergies Allergy Unverified 10/18/19 04:07 General Stated Complaint: Seizure EMILIE: 3 Review of Systems All systems reviewed & are unremarkable except as noted in HPI and below Constitutional Constitutional: Denies chills, Denies fever(s) and Denies weakness Cardiovascular Cardiovascular: Denies chest pain and Denies dyspnea Respiratory Respiratory: Denies cough and Denies dyspnea Gastrointestinal Gastrointestinal: Denies abdominal pain, Denies nausea and Denies vomiting Genitourinary Genitourinary: Denies dysuria Musculoskeletal Musculoskeletal: Denies joint swelling Integumentary/Breasts Skin/Breast: Denies rash Neurologic Neurologic: Denies weakness Psychiatric Psychiatric: Denies depression [facility] Medical History (Updated 10/30/19 @ 12:54 by Chino Mendes MD) Seizure (Acute) Surgical History (Updated 06/10/19 @ 09:55 by Dona Amato DO) No significant past surgical history (Acute) Social History Smoking/Tobacco Use Status: Current every day Tobacco Type: cigarettes Alcohol Intake: current Alcohol Intake frequency: a few times a week Drug use: Daily Substance use type: marijuana Do you feel safe at home: Yes Do you feel safe in your relationship?: Yes Exam Const General: no acute distress Orientation: alert HENMT Head: normal to inspection Ears: external ears normal General nose exam: external nose normal Mouth: moist mucous membranes Eyes General: appearance normal, both eyes and all related structures Neck Neck: normal visual inspection Resp Effort & Inspection: normal respiratory effort and able to speak in complete sentences Cardio Rate: regular rate Skin General skin exam: no rashes or lesions noted Neuro General: patient alert and patient oriented x3 Extrem General: normal to inspection Psych Mental Status: mental status grossly normal Course Vital Signs Vital signs: Vital Signs Temperature 36.5 C 10/30/19 11:25 Pulse 88 10/30/19 11:25 Respiratory Rate 18 10/30/19 11:25 Blood Pressure 180/92 H 10/30/19 11:25 Pulse Oximetry 97 10/30/19 11:25 Temperature 36.5 C 10/30/19 11:25 Temperature Source Tympanic 10/30/19 11:25 Pulse 88 10/30/19 11:25 Respiratory Rate 18 10/30/19 11:25 Blood Pressure 180/92 H 10/30/19 11:25 Pulse Oximetry 97 10/30/19 11:25 Oxygen Delivery Method Room Air 10/30/19 11:25 Oxygen Flow Rate 0 10/30/19 11:25
[2019-10-30] MEDS: levETIRAcetam 1,000 MG in Normal Saline 100 ML 400 MG IVPB (11:46)
[2019-10-30] MEDS: Ketorolac 15 MG/ML VIAL IVP (11:47)
[2019-10-30] MEDS: Normal Saline Flush 10 ML SYR IVP (11:48)
[2019-10-30 12:27] LABS: Absolute Basophil Count 0.05 10^3/uL (0.0-0.2); Absolute Eosinophil Count 0.16 10^3/uL (0.0-0.7); Absolute Lymphocyte Count 2.01 10^3/uL (1.2-3.4); Absolute Neutrophil Count 7.82 10^3/uL (1.2-6.7); Basophils % 0.5; Eosinophils % 1.5; HCT 46.6 % (40.0-50.0); HGB 15.9 g/dL (13.5-17.5); Immature Grans % 0.9; Lymphocytes % 18.7; MCH 30.3 pg (27.0-33.0); MCHC 34.1 % (32.0-36.0); MCV 88.9 fL (80-95); MPV 9.4 fL (8.0-11.0); Monocytes % 5.6; Neutrophils % 72.8; Nucleated RBC 0 %; Platelet Count 265 10^3/uL (130-400); RBC 5.24 10^6/uL (4.36-5.78); RDW 12.5 % (11.8-14.1); RDW-SD 40.8 fL; WBC 10.74 10^3/uL (4.4-10.8)
[2019-10-30 12:28] LABS: ALT 32 U/L (16-63); AST 22 U/L (15-37); Albumin 3.8 g/dL (3.4-5.0); Alkaline Phosphatase 63 U/L (46-116); Anion Gap 7.7 mmol/L (3-11); BUN 13 mg/dL (7-18); Bilirubin, Total 0.5 mg/dL (0.2-1.0); CO2 27.3 mmol/L (21.0-32.0); CREATININE 0.93 mg/dL (0.70-1.30); Chloride 101 mmol/L (98-107); Glucose 107 mg/dL (74-106); Potassium 3.8 mmol/L (3.5-5.1); Sodium 136 mmol/L (136-145); Total Protein 7.3 g/dL (6.4-8.2)
[2019-10-30 12:41] LABS: ETHANOL BLOOD < 3.0 mg/dL (<3)
[2019-10-30 13:05] VITALS: BP 128/76; PULSE 76; RESP 20; O2SAT 98
--- NOTE | 2019-10-30 13:49 | NUR.NOTE ---
Referral to Care Management to establish PCP.Nursing Note:
--- NOTE | 2019-11-01 12:46 | PDOC.ERCMPRO ---
- If Service Date Differs Date of service: 11/01/19 Time of Service: 12:46 Care Management Progress Note At the request of ED provider, CM coordinates a referral to Zeus Esparza, on-call provider, of [facility] to assist patient in obtaining a follow up appointment and in establishing care with a PCP. Sixto was initially referred to [facility] but could not establish with them due to some kind of legal issue related to [facility].
== END 2019-10-30 13:05 | disposition home or self-care (01) ==
PROVIDERS: Emergency Provider Emergency Medicine
DX: G40.909 Epilepsy, unspecified, not intractable, without status epilepticus (principal); Z91.14 Patient's other noncompliance with medication regimen
CPT/HCPCS: 80053; 93005; 96365; 96375; 99284; 80320; 85025; 93010; J1885; J1953

== ENCOUNTER 2020-07-02 05:33 | Emergency (ER) | payer MEDICAID, SELFPAY ==
[2020-07-02] VITALS (11 sets, daily range): BP systolic 149–162; BP diastolic 84–91; PULSE 59–92; RESP 16–30; TEMP 36.7; O2SAT 95–98
--- NOTE | 2020-07-02 05:39 | ED.GENADUL_ITS ---
Discharge Plan Disposition Patient Disposition: HOME Condition: Good Discharge Details Clinical Impression: Seizure Primary Care Provider: None,None ED Provider: Tyson Merrill Home Meds and New Rx's Prescriptions: New levetiracetam [Keppra] 500 mg tablet 500 mg PO BID 90 Days Qty: 180 RF: 0 Discontinued levetiracetam [Keppra] 500 mg tablet 500 mg PO BID Qty: 120 RF: 0 levetiracetam [Keppra] 500 mg tablet 500 mg PO BID Qty: 60 RF: 0 Discharge Instructions Instructions: Recurrent Seizures in Adults (ED) Additional Instructions: Please take your Keppra seizure medication as directed. Please follow-up closely with your new family doctor for continued monitoring, observation, and reassessment. If you notice any worsening of your symptoms, or any new symptoms such as vomiting, diarrhea, fever, chills, shortness of breath, chest pain, numbness, weakness, or fainting , please return immediately to the emergency department for reevaluation. Please follow up with your primary care provider as soon as possible for reassessment and reevaluation. As always, it was a plea sure participating in your medical care today. Referrals: Kamla Temple [ NON-[facility] STAFF PHYSICIAN] - Medical Decision Making 25-year-old male presents today for evaluation of seizure. 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 It was tonic-clonic and lasted about 2 to 3 minutes. This is the first seizure the patient has had in the last 6 months. Secondary to a lack of a prescribing physician the patient has not had any of his Keppra for quite some time (1-2 months). He denies any IV or illicit drug use. He denies any other complaints. He does state that he feels fatigued. No other complaints at this time. Exam demonstrates a well-appearing male, neurologic exam normal. Patient appears to be abnormal mental status at this time. No neurologic deficits. No meningeal signs. Patient denies any IV or illicit drug use. Medication noncompliance is likely the primary reason that the patient sees this evening. We will give her a dose of 500 mg of Keppra, monitor and observe here in the ER and then discharged. No indication for emergent imaging at this time, symptoms appear clinically consistent with a seizure secondary to medication noncompliance. At this time he denies any concerning red flags of vomiting, persistent chronic headache, or history of brain tumors. 6:40 AM After prolonged observation. The patient has done very well. No repeat seizures. Patient feels well and would like to go home. Repeat neurologic exam shows no neurologic deficits. Scenario was discussed with the patient with a rental car ferry driver, as well as with his significant other. Patient will be discharged home with recommendation for close follow-up and continuation on Keppra. Discussed red flags which return. I have extensively reviewed the treatment plan and discharge instructions with the patient. I have addressed all patient concerns at this time. The patient was made aware of what symptoms to monitor for that would warrant a return to the emergency department. Discussed the plan with the patient, they demonstrate verbal understanding and agreement with our assessment and plan at this time. The documentation in this chart was dictated using X[employer] dictation software. Please excuse any dictation errors. HPI General Date/Time Provider Initiated Documentation: 07/02/20 05:36 . HPI Narrative: 25-year-old male presents today for evaluation of seizure. 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 It was tonic-clonic and lasted about 2 to 3 minutes. This is the first seizure the patient has had in the last 6 months. Secondary to a lack of a prescribing physician the patient has not had any of his Keppra for quite some time (1-2 months). He denies any IV or illicit drug use. He denies any other complaints. He does state that he feels fatigued. No other complaints at this time. Related Data Home Medications Medication Instructions Recorded Confirmed levetiracetam [Keppra] 500 mg PO BID 90 Days #180 tab 07/02/20 Previous Rx's Medication Instructions Recorded levetiracetam [Keppra] 500 mg PO BID 90 Days #180 tab 07/02/20 Allergies Allergy/AdvReac Type Severity Reaction Status Date / Time No Known Allergies Allergy Unverified 07/02/20 05:50 General EMILIE: 3 Review of Systems All systems reviewed & are unremarkable except as noted in HPI and below [facility] Medical History Seizure Surgical History No significant past surgical history Social History Smoking/Tobacco Use Status: Current every day Tobacco Type: cigarettes Smoking risk assessment performed?: Yes Alcohol Intake: current Alcohol Intake frequency: a few times a week Drug use: Daily Substance use type: marijuana Do you feel safe at home: Yes Do you feel safe in your relationship?: Yes Exam Narrative Exam Narrative: 1.Const: Well-nourished, Well-developed, appearing stated age 2.Eyes: PERRL, no conjunctival injection, and symmetrical lids. 3.ENT: Atraumatic external nose and ears. Moist MM. Neck: Symmetric, trachea midline, No thyromegaly. Bite anderson on the tongue are present. No nuchal rigidity. 4.CVS: +S1/S2, No murmurs or gallops. Peripheral pulses 2+ and equal in all extremities. Brisk capillary refill in all extremities. 5.RESP: Unlabored respiratory effort. Clear to auscultation bilaterally. No wheezes rales or rhonchi 6.GI: Soft, Nontender/Nondistended, No hepatosplenomegaly. No guarding or rebound. 7.MSK: Normocephalic/Atraumatic, Extremities w/o deformity or ttp No cyanosis or clubbing, Normal movement of all extremities 8.Skin: Warm, Dry. No rashes or lesions. 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 Sensation grossly intact, no focal neurologic deficits. All 6 cardinal planes of vision are fully intact. No evidence of rotatory or vertical nystagmus. The patient demonstrated a normal [id number], good dexterity. There was no evidence of dysdiadochokinesia. Patient was able to ambulate without difficulty. There was no wide-based gait. Romberg testing was normal. [id number] testing was normal. Sensation was intact bilaterally as well as muscle strength bilaterally for all extremities. Patient was able to verbalize butter cup with no slurring, or miss pronunciation. 10.Psych: (AAO) x3. Appropriate mood and affect
[2020-07-02] MEDS: levETIRAcetam 500 MG TAB PO (06:20)
== END 2020-07-02 07:05 | disposition home or self-care (01) ==
LOC: ER 06:23
PROVIDERS: Emergency Provider Student in an Organized Health Care Education/Training Program
DX: G40.409 Other generalized epilepsy and epileptic syndromes, not intractable, without status epilepticus (principal); T42.6X6A Underdosing of other antiepileptic and sedative-hypnotic drugs, initial encounter
CPT/HCPCS: 99283